=== PATIENT | male | born 1945 | race Caucasian/White ===

== ENCOUNTER 2018-09-14 07:19 | Day surgery (SDC) | payer OTHER ==
[2018-09-14 08:21] LABS: ADD MAN DIFF? NO
[2018-09-14 08:41] LABS: ANION GAP 11 (5-13); BLOOD UREA NITROGEN 36 mg/dl (7-20); CALCIUM 9.4 mg/dl (8.4-10.2); CARBON DIOXIDE 22 mmol/L (21-31); CHLORIDE 112 mmol/L (97-110); GLUCOSE 99 mg/dl (70-220); POTASSIUM 4.7 mmol/L (3.5-5.1); SODIUM 145 mmol/L (135-144)
[2018-09-14 08:42] LABS: CHOL/HDL RATIO 6.1 RATIO; HDL CHOLESTEROL 28 mg/dl (31-75); LDL CHOLESTEROL,CALCULATED 95 mg/dl; TRIGLYCERIDES 248 mg/dl (0-149)
[2018-09-14 08:42] LABS: CHOLESTEROL 173 mg/dl (100-200)
[2018-09-14 08:43] LABS: INR 0.88; PT RATIO 0.9
[2018-09-14 08:44] LABS: PARTIAL THROMBOPLASTIN TIME 29.8 Sec (23.0-35.0)
[2018-09-14] MEDS ORDERED: VERAPAMIL 5 MG INJ (08:44)
[2018-09-14] MEDS ORDERED: MIDAZOLAM 1 MG/ML 2 ML INJ (08:44)
[2018-09-14] MEDS ORDERED: IODIXANOL LOCM 100 ML BTL (08:44)
[2018-09-14] MEDS ORDERED: LIDOCAINE 2% (MDV) 20 ML INJ (08:44)
[2018-09-14] MEDS ORDERED: HEPARIN 1000 UNITS/ML 10 ML INJ (08:45)
[2018-09-14] MEDS ORDERED: FENTAnyl 50 MCG/ML VIAL (08:46)
[2018-09-14] MEDS ORDERED: NITROGLYCERIN (IC) 100 MCG/ML INJ (08:46)
[2018-09-14 10:05] LABS: WHITE BLOOD COUNT 7.4 10^3/ul (4.8-10.8)
[2018-09-14 10:05] LABS: BASOPHILS % 0.3 % (0.0-2.0); EOSINOPHILS # 0.2 10^3/ul (0.0-0.5); EOSINOPHILS % 2.2 % (0.0-7.0); HEMATOCRIT 39.3 % (42.0-52.0); HEMOGLOBIN 13.2 g/dl (14.0-18.0); LYMPHOCYTES # 1.6 10^3/ul (0.8-2.9); LYMPHOCYTES % 21.9 % (15.0-51.0); MEAN CORPUSCULAR HEMOGLOBIN 31.2 pg (29.0-33.0); MEAN CORPUSCULAR HGB CONC 33.6 g/dl (32.0-37.0); MEAN CORPUSCULAR VOLUME 92.9 fl (82.0-101.0); MEAN PLATELET VOLUME 11.5 fl (7.4-10.4); MONOCYTE # 0.6 10^3/ul (0.3-0.9); MONOCYTES % 7.8 % (0.0-11.0); NEUTROPHILS % 67.5 % (39.0-77.0); PLATELET COUNT 174 10^3/UL (140-415); RED BLOOD COUNT 4.23 10^6/ul (4.70-6.10); RED CELL DISTRIBUTION WIDTH 14.8 % (11.5-14.5)
== END 2018-09-14 10:10 | disposition home or self-care (01) ==
LOC: SDS 07:19
DX: R94.39 Abnormal result of other cardiovascular function study (principal); R07.9 Chest pain, unspecified; Z53.8 Procedure and treatment not carried out for other reasons
CPT/HCPCS: 71045; 80048; 80061; 85025; 85610; 85730; 93005